=== PATIENT | male | born 1955 | race Caucasian/White ===

== ENCOUNTER 2019-05-18 06:35 | Day surgery (SDC) | payer OTHER ==
[~2019-05-18 06:35] MED LIST: Lactated Ringers 1,000 ML IV SCH; Lidocaine 1%/Sod Bicarbonate in NS 8.4% 1 ML Syringe IDERM PRN; Sodium Chloride 0.9% 10 ML Syringe FLUSH PRN
[2019-05-18] MEDS ORDERED: Propofol 200 MG/20 ML SDV ONE ×2 (06:41→08:18)
[2019-05-18] MEDS ORDERED: Midazolam 1 MG/ML 2 ML SDV ONE ×2 (06:41→08:16)
[2019-05-18] MEDS ORDERED: fentaNYL 100 MCG/2 ML SDV ONE (06:48)
[2019-05-18] MEDS ORDERED: Succinylcholine/Sod PF 100 MG/5 ML SYRINGE IV ONE ×2 (06:48→08:19)
--- NOTE | 2019-05-18 07:01 | PCM.PREANE ---
Preanesthetic Assessment - Anesthesia/Transfusion/Family Hx Anesthesia History: Prior Anesthesia Without Reaction - Review of Systems General: No Symptoms Pulmonary: No Symptoms Cardiovascular: No Symptoms Gastrointestinal: No Symptoms Neurological: No Symptoms Other: Reports: None - Physical Assessment NPO Status Date: 05/17/19 NPO Status Time: 20:30 Vital Signs: 162/104, hr:67, RR 18, SpO2 97% Height: 1.75 m Weight: 70.2 kg ASA Class: 2 Mental Status: Alert & Oriented x3 Airway Class: Mallampati = 3 (possibly difficult airway) Dentition: Reports: Broken Tooth/Teeth (multiple broken and chipped teeth, reports none loose) Thyro-Mental Finger Breadths: 3 Mouth Opening Finger Breadths: 3 ROM/Head Extension: Limited/Partial Lungs: Clear to Auscultation, Normal Respiratory Effort - Lab Values: Laboratory Last Values MRSA (PCR) Negative 05/16/19 12:01 - Allergies Allergies/Adverse Reactions: Allergies Allergy/AdvReac Type Severity Reaction Status Date / Time No Known Allergies Allergy Verified 05/18/19 08:07 - Acknowledgements Anesthesia Type Planned: General Anesthesia, Regional Block (interscalene block for postoperative pain) Pt an Appropriate Candidate for the Planned Anesthesia: Yes Alternatives and Risks of Anesthesia Discussed w Pt/Guardian: Yes Pt/Guardian Understands and Agrees with Anesthesia Plan: Yes PreAnesthesia Questionnaire HEENT History: Reports: Impaired Vision, Other (See Below) Other HEENT History: wears glasses Cardiovascular History: Reports: Hypertension Respiratory History: Reports: None Gastrointestinal History: Reports: GERD Genitourinary History: Reports: None Musculoskeletal History: Reports: None Neurological History: Reports: None Psychiatric History: Reports: Anxiety, Depression, Other (See Below) Other Psychiatric History: alcohol abuse, dystymic disorder Endocrine/Metabolic History: Reports: None Hematologic History: Reports: None Immunologic History: Reports: None Oncologic (Cancer) History: Reports: None Dermatologic History: Reports: None - Past Surgical History Head Surgeries/Procedures: Reports: None Cardiovascular Surgical History: Reports: None Respiratory Surgical History: Reports: None GI Surgical History: Reports: None Female Surgical History: Reports: None Male Surgical History: Reports: None Endocrine Surgical History: Reports: None Neurological Surgical History: Reports: None Musculoskeletal Surgical History: Reports: ORIF, Other (See Below) Other Musculoskeletal Surgeries/Procedures:: left wrist ORIF, right foot ORIF Oncologic Surgical History: Reports: None Dermatological Surgical History: Reports: None - SUBSTANCE USE Smoking Status *Q: Current Every Day Smoker Tobacco Use Within Last Twelve Months: Snuff/Dip Days Per Week of Alcohol Use: 7 Number of Drinks Per Day: 10 Total Drinks Per Week: 70 Recreational Drug Use History: No - HOME MEDS Home Medications: Home Meds Citalopram Hydrobromide [Celexa] 20 mg PO DAILY 05/17/19 [History] buPROPion HCL [Bupropion HCl Sr] 150 mg PO BID 05/17/19 [History] lisinopriL [Lisinopril] 10 mg PO DAILY 05/17/19 [History] - CURRENT (IN HOUSE) MEDS Current Meds: Current Medications Lactated Ringer's (Ringers, Lactated) 1,000 mls @ 125 mls/hr IV ASDIRECTED CARLOS EDUARDO Stop: 05/18/19 23:00 Lidocaine/Sodium Bicarbonate (Buffered Lidocaine 1% In Ns 8.4%) 0.25 ml IDERM ONETIME PRN PRN Reason: Prior to IV Start Stop: 05/18/19 23:00 Sodium Chloride (Saline Flush) 10 ml FLUSH ASDIRECTED PRN PRN Reason: Keep Vein Open Stop: 05/18/19 23:00 Discontinued Medications Fentanyl (Sublimaze) Confirm Administered Dose 100 mcg .ROUTE .STK-MED ONE Stop: 05/18/19 06:49 Midazolam HCl (Versed 1 Mg/Ml) Confirm Administered Dose 4 mg .ROUTE .STK-MED ONE Stop: 05/18/19 06:42 Propofol (Diprivan 20 Ml) Confirm Administered Dose 200 mg .ROUTE .STK-MED ONE Stop: 05/18/19 06:42
[2019-05-18] MEDS ORDERED: Ropivacaine 0.5% 5 MG/ML 30 ML SDV ONE (07:34)
[2019-05-18] MEDS ORDERED: ceFAZolin 1 GM Vial ONE (07:37)
[2019-05-18] MEDS ORDERED: Lidocaine 1% 2 ML ONE (08:41)
[2019-05-18] MEDS ORDERED: Lactated Ringers 1,000 ML ONE ×2 (08:44→10:09)
[2019-05-18] MEDS: Bupivacaine 0.25% 10 ML SDV ONE ×2 (09:07→10:35)
[2019-05-18] MEDS: Triamcinolone Acetonide 40 MG/ML 1 ML SDV ONE ×2 (09:08→10:35)
[2019-05-18] MEDS ORDERED: ePHEDrine Sulfate/0.9% NaCl/Pf 25 MG/5 ML SYRINGE IV ONE ×2 (09:16→10:11)
--- NOTE | 2019-05-18 09:31 | PCM.PRNOTE ---
- Free Text/Narrative Note: Postoperative regional pain control requested by surgeon. Pre-op Dx: Right humerus greater tuberosity fracture Surgical procedure: Right humerus ORIF Procedure: Rt Interscalene block with U/S guidance Requesting physician: Dr. Quan Lopez Risks and benefits discussed with the patient preoperatively including infection , bleeding, incomplete or failed block, possible nerve damage, local anesthetic toxicity. Chart reviewed, VS stable. Permit signed. Patient in preoperative room, stable , alert and awake. Time out performed at 07 :20. Oxygen 3L via NC. Right side of the neck was prepped with Chloraprep x 1 and allowed to dry. Midazolam IV 4 mg given incrementally. Under aseptic technique, the brachial plexus was identified under ultrasound prior to needle insertion. Local infiltration with 2mls of 1% Lidocaine. 2" Stimuplex needle # 22 G was inserted under US guidance. Neuromuscular response of biceps contraction and forearm twitching elicited at 0.6 mA. Under direct visualization of needle tip the injection of 25 mls 0.5% Ropivacaine with 1: 200k epinephrine with 5 mls of 1% Lidocaine PF, total of 30 mls in divided doses , maintaining negative aspiration was completed without problems. No local anesthetic toxicity was noted. Patient is awake, stable and tolerated the procedure well. Please see the attached U/S images Time: 07:20 - 07:29
[2019-05-18] MEDS ORDERED: Ondansetron 4 MG/2 ML SDV ONE (09:37)
[2019-05-18] MEDS ORDERED: fentaNYL 100 MCG/2 ML SDV IVPUSH PRN (10:38)
[2019-05-18] MEDS ORDERED: HYDROmorphone 0.5 MG/0.5 ML Syringe IVPUSH PRN (10:38)
--- NOTE | 2019-05-18 10:55 | CR ---
Right shoulder: 4 fluoroscopic spot views were obtained of the right shoulder utilizing C-arm device. Reduction or possibly resection of previous fracture fragment is noted. Please correlate. Fluoroscopy time given as 19.7 seconds. Impression: 1. Procedural study as noted above. Diagnostic code #2 Study was dictated in MDT
--- NOTE | 2019-05-18 11:10 | PCM.POSTAN ---
POST ANESTHESIA ASSESSMENT - MENTAL STATUS Mental Status: Alert, Oriented - VITAL SIGNS Vital Signs: Last Vital Signs Temp 98.1 F 05/18/19 10:52 Pulse 68 05/18/19 07:00 Resp 18 05/18/19 10:52 BP 118/77 05/18/19 10:52 Pulse Ox 99 05/18/19 10:52 - RESPIRATORY Respiratory Status: Respiratory Rate WNL, Airway Patent, O2 Saturation Stable, Supplemental Oxygen - CARDIOVASCULAR CV Status: Pulse Rate WNL, Blood Pressure Stable - GASTROINTESTINAL GI Status: No Symptoms - PAIN Pain Score: 1 - POST OP HYDRATION Hydration Status: Adequate & Stable
--- NOTE | 2019-05-18 12:28 | PCM48HPAN ---
Post Anesthesia Note - EVALUATION WITHIN 48HRS OF ANESTHETIC Vital Signs in Normal Range: Yes Patient Participated in Evaluation: Yes Respiratory Function Stable: Yes Airway Patent: Yes Cardiovascular Function Stable: Yes Hydration Status Stable: Yes Pain Control Satisfactory: Yes Nausea and Vomiting Control Satisfactory: Yes Mental Status Recovered: Yes Vital Signs: Last Vital Signs Temp 97.7 F 05/18/19 11:45 Pulse 82 05/18/19 11:45 Resp 16 05/18/19 11:45 BP 134/89 05/18/19 11:45 Pulse Ox 95 05/18/19 11:45 - COMMENTS/OBSERVATIONS Free Text/Narrative:: Patient is ready to be discharged home. Patient received explanation about being proactive with oral pain control after the dissipation of the regional block.
[2019-05-18 13:55] VITALS: BP 146/92; PULSE 67
--- NOTE | 2019-05-23 11:00 | PCM.OPNOTE ---
- General Post-Op/Procedure Note Date of Surgery/Procedure: 05/18/19 Operative Procedure(s): open reduction with internal fixation of right greater tuberosity fracture with left carpal tunnel injection Pre Op Diagnosis: right greater tuberosity humerus fracture with left carpal tunnel syndrome Post-Op Diagnosis: Same Anesthesia Technique: General ET Tube, Regional Block Primary Surgeon: Quan Peoples Anesthesia Provider: Cesar Riley Cripple Worker: Elida Payne EBL in mLs: 300 Condition: Good
--- NOTE | 2019-05-23 11:38 | OR ---
DATE OF OPERATION: 05/18/2019 SURGEON: Quan Peoples MD OPERATION PERFORMED: Open reduction internal fixation of right greater tuberosity fracture with left carpal tunnel steroid injection. PREOPERATIVE DIAGNOSIS: Right greater tuberosity humerus fracture with left carpal tunnel syndrome. POSTOPERATIVE DIAGNOSIS: Right greater tuberosity humerus fracture with left carpal tunnel syndrome. ANESTHESIA: General endotracheal intubation with regional interscalene block. ANESTHESIA PROVIDER: Lucia Spangler. ROAD CONDUCTOR: Elida Payne PA-C ESTIMATED BLOOD LOSS: 300 mL. CONDITION: Stable. DESCRIPTION OF PROCEDURE: The patient was identified in the preop holding area. Proper site was marked, identified by the surgeon. The patient was taken back to the operative theater where after adequate anesthesia, the patient was placed supine on radiolucent table. Right upper extremity was then sterilely prepped and draped in the usual sterile fashion. OR time-out was performed. The patient received 2 g IV Ancef. The patient was placed in the reverse Trendelenburg position and standard deltopectoral incision was made. This was taken down to cephalic vein. The cephalic vein was identified and retracted laterally and the clavipectoral fascia was incised. I was able to find the area of fracture of the greater tuberosity with complete pullback of the greater tuberosity fracture way posteriorly. This was chronic and over 5 to 6 weeks out, making the difficulty significantly increased as there was significant scarring and difficulty getting that fragment from posteriorly up laterally and anteriorly where the fracture bed was. I curetted and rongeured the fracture bed and was able to finally with an Allis clamp grab the piece. It was significantly scarred in. I had to work with an elevator to elevate it off posteriorly where it had scarred in. At this point, C-arm fluoroscopy was utilized to show that I indeed have the fragment, and I then placed a #5 FiberWire through the fragment. Secondary to the small bony fragment, I decided plate fixation would not be adequate, so we decided to use two 4.75 mm Arthrex SwiveLock anchors. These were placed just distal to the fracture bed and 1 anteriorly and 1 posteriorly to it. I then placed 4 limbs of #2 FiberWire through the bony fragment and proximal to the bony fragment through the rotator cuff and was able to tie these in crosswise fashion over the greater tuberosity fracture and it had adequate baptism of the rotator cuff to the greater tuberosity fracture fragment. It did take significant force as the patient's greater tuberosity fragment as well as rotator cuff had been for 6 weeks retracted and scarred in posteriorly. C-arm fluoroscopy was utilized showing that it was indeed back to the fracture bed fragment. Once this was completed and found to be adequate on C-arm fluoroscopy, adequate saline was irrigated through the wound. 2-0 Vicryl was used subcutaneously and Prineo was used for the skin. The patient was placed in a sterile soft dressing and a pillow sling. After this was completed under sterile technique, 1 mL of 40 mg Kenalog and 2 mL of 0.25% Marcaine were injected to the left carpal tunnel. The patient tolerated all the procedures well and sent to the PACU in stable condition. DEIRDRE /[id number]
== END 2019-05-18 13:25 | disposition home or self-care (01) ==
LOC: JD.SDS 06:35
PROVIDERS: ATTEND Orthopaedic Surgery
DX: S42.251A Displaced fracture of greater tuberosity of right humerus, initial encounter for closed fracture (principal); G56.02 Carpal tunnel syndrome, left upper limb; I10 Essential (primary) hypertension; K21.9 Gastro-esophageal reflux disease without esophagitis; F34.1 Dysthymic disorder; F10.20 Alcohol dependence, uncomplicated; F17.220 Nicotine dependence, chewing tobacco, uncomplicated; Z79.899 Other long term (current) drug therapy; W19.XXXA Unspecified fall, initial encounter; Y92.513 Shop (commercial) as the place of occurrence of the external cause
CPT/HCPCS: 20526; 23630; 36415; 76000; 80053; 80307; 85025; 85610; 87641; C1713; J0171; J0330; J0690; J2001; J2250; J2405; J2704; J2795; J3010; J3301; J3490; J7120; 01630; 64415

== ENCOUNTER 2020-01-18 16:18 | Emergency (ER) | payer OTHER ==
[2020-01-18] MEDS ORDERED: Sodium Chloride 0.9% 10 ML Syringe FLUSH PRN (16:49)
[2020-01-18] MEDS ORDERED: Sodium Chloride 0.9% 1,000 ML IV ONE (16:50)
[2020-01-18 16:52] VITALS: PULSE 89
--- NOTE | 2020-01-18 17:14 | EDM.PDOC ---
ED HPI GENERAL MEDICAL PROBLEM - General Chief Complaint: Cardiovascular Problem Stated Complaint: HIGH POTASSIUM Time Seen by Provider: 01/18/20 16:26 Source of Information: Reports: Patient History Limitations: Reports: No Limitations - History of Present Illness INITIAL COMMENTS - FREE TEXT/NARRATIVE: The patient presents with high potassium. The patient had blood work done on 11/22/19 and his potassium was elevated at 5.4. He was supposed to drink more water but he admits that has been a challenge and he has not been doing good with that. He had labs done again today and his K was 5.8 and creatinine was 1.3 and AST was up slightly at 43. The rest of his labs look good. He says he feels good. He has no fever, chills, cough, congestion, runny nose, chest pain, shortness of breath, abdominal pain, nausea or vomiting. He does have a history of hypertension and he is on lisinopril for that. He is also on medications for depression and anxiety. Onset: Gradual Duration: Week(s): Severity: Moderate Improves with: Reports: None Worsens with: Reports: None Associated Symptoms: Reports: No Other Symptoms - Related Data Allergies Allergy/AdvReac Type Severity Reaction Status Date / Time No Known Allergies Allergy Verified 01/18/20 16:30 Home Meds: Home Meds Citalopram Hydrobromide [Celexa] 20 mg PO DAILY 05/17/19 [History] buPROPion HCL [Bupropion HCl Sr] 150 mg PO BID 05/17/19 [History] lisinopriL [Lisinopril] 10 mg PO DAILY 05/17/19 [History] Past Medical History HEENT History: Reports: Impaired Vision, Other (See Below) Other HEENT History: wears glasses Cardiovascular History: Reports: Hypertension Respiratory History: Reports: None Gastrointestinal History: Reports: GERD Genitourinary History: Reports: None Musculoskeletal History: Reports: None Neurological History: Reports: None Psychiatric History: Reports: Anxiety, Depression, Other (See Below) Other Psychiatric History: alcohol abuse, dystymic disorder Endocrine/Metabolic History: Reports: None Hematologic History: Reports: None Immunologic History: Reports: None Oncologic (Cancer) History: Reports: None Dermatologic History: Reports: None - Infectious Disease History Infectious Disease History: Reports: Chicken Pox, Measles - Past Surgical History Cardiovascular Surgical History: Reports: None GI Surgical History: Reports: None Male Surgical History: Reports: None Musculoskeletal Surgical History: Reports: ORIF, Other (See Below) Other Musculoskeletal Surgeries/Procedures:: left wrist ORIF, right foot ORIF Social & Family History - Family History Family Medical History: No Pertinent Family History - Tobacco Use Tobacco Use Comment: 02/17 can - Caffeine Use Caffeine Use: Reports: None - Alcohol Use Days Per Week of Alcohol Use: 7 Number of Drinks Per Day: 10 Total Drinks Per Week: 70 - Recreational Drug Use Recreational Drug Use: No ED ROS GENERAL - Review of Systems Review Of Systems: See Below Constitutional: Reports: No Symptoms HEENT: Reports: No Symptoms Respiratory: Reports: No Symptoms Cardiovascular: Reports: No Symptoms Endocrine: Reports: No Symptoms GI/Abdominal: Reports: No Symptoms : Reports: No Symptoms Musculoskeletal: Reports: No Symptoms Skin: Reports: No Symptoms ED EXAM, GENERAL - Physical Exam Exam: See Below Exam Limited By: No Limitations General Appearance: Alert, No Apparent Distress Ears: Normal External Exam Nose: Normal Inspection Head: Atraumatic, Normocephalic Neck: Normal Inspection Respiratory/Chest: No Respiratory Distress, Lungs Clear, Normal Breath Sounds Cardiovascular: Regular Rate, Rhythm, No Edema, No Murmur GI/Abdominal: Soft, Non-Tender, No Organomegaly, No Mass Back Exam: Normal Inspection Extremities: Normal Inspection Course - Vital Signs Last Recorded V/S: Last Vital Signs Temp 96.8 F L 01/18/20 16:28 Pulse 89 01/18/20 16:50 Resp 20 01/18/20 16:28 BP 133/88 01/18/20 16:50 Pulse Ox 97 01/18/20 16:28 - Orders/Labs/Meds Orders: Active Orders 24 hr Category Date Time Status Cardiac Monitoring [RC] . DIRECTED Care 01/18/20 16:49 Active Peripheral IV Care [RC] . DIRECTED Care 01/18/20 16:50 Active Sodium Chloride 0.9% [Saline Flush] Med 01/18/20 16:49 Active 10 ml FLUSH ASDIRECTED PRN Peripheral IV Insertion Adult [OM.PC] Stat Oth 01/18/20 16:49 Ordered Medication Orders Sodium Chloride (Saline Flush) 10 ml FLUSH ASDIRECTED PRN PRN Reason: Keep Vein Open Last Admin: 01/18/20 17:05 Dose: 10 ml Documented by: HOWAELI Labs: Laboratory Tests 01/18/20 01/18/20 Range/Units 17:03 17:49 WBC 6.74 (4.23-9.07) K/mm3 RBC 4.82 (4.63-6.08) M/mm3 Hgb 15.6 (13.7-17.5) gm/dl Hct 47.3 (40.1-51.0) % MCV 98.1 H (79.0-92.2) fl MCH 32.4 H (25.7-32.2) pg MCHC 33.0 (32.2-35.5) g/dl RDW Std Deviation 44.7 H (35.1-43.9) fL Plt Count 237 (163-337) K/mm3 MPV 9.7 (9.4-12.3) fl Neut % (Auto) 66.2 (34.0-67.9) % Lymph % (Auto) 15.0 L (21.8-53.1) % Morrow % (Auto) 13.6 H (5.3-12.2) % Eos % (Auto) 4.3 (0.8-7.0) Baso % (Auto) 0.9 (0.1-1.2) % Neut # (Auto) 4.46 (1.78-5.38) K/mm3 Lymph # (Auto) 1.01 L (1.32-3.57) K/mm3 Morrow # (Auto) 0.92 H (0.30-0.82) K/mm3 Eos # (Auto) 0.29 (0.04-0.54) K/mm3 Baso # (Auto) 0.06 (0.01-0.08) K/mm3 Sodium 138 (136-145) mEq/L Potassium 4.5 (3.5-5.1) mEq/L Chloride 103 (98-107) mEq/L Carbon Dioxide 23 (21-32) mEq/L Anion Gap 16.5 H (5-15) BUN 12 (7-18) mg/dL Creatinine 1.2 (0.7-1.3) mg/dL Est Cr Clr Drug Dosing 60.55 mL/min Estimated GFR (MDRD) > 60 (>60) mL/min BUN/Creatinine Ratio 10.0 L (14-18) Glucose 86 (80-115) mg/dL Calcium 8.1 L (8.5-10.1) mg/dL Magnesium 2.0 (1.8-2.4) mg/dl Total Bilirubin 0.3 (0.2-1.0) mg/dL AST 32 (15-37) U/L ALT 31 (16-63) U/L Alkaline Phosphatase 110 (46-116) U/L Troponin I < 0.017 (0.00-0.056) ng/mL Total Protein 6.5 (6.4-8.2) g/dl Albumin 3.1 L (3.4-5.0) g/dl Globulin 3.4 gm/dL Albumin/Globulin Ratio 0.9 L (1-2) Meds: Medications Generic Name Dose Route Start Last Admin Trade Name Freq PRN Reason Stop Dose Admin Sodium Chloride 10 ml 01/18/20 16:49 01/18/20 17:05 Saline Flush FLUSH 10 ml ASDIRECTED PRN Administration Keep Vein Open Discontinued Medications Generic Name Dose Route Start Last Admin Trade Name Freq PRN Reason Stop Dose Admin Sodium Chloride 1,000 mls @ 1,000 mls/hr 01/18/20 16:50 01/18/20 17:05 Normal Saline IV 01/18/20 17:49 1,000 mls/hr ONETIME ONE Administration - Re-Assessments/Exams Free Text/Narrative Re-Assessment/Exam: 01/18/20 17:14 I ordered an IV NS 1L bolus, and labs. 01/18/20 18:44 His CBC and CMP look good. His K was normal at 4.5. His first sample was hemolyzed. They rico him again and it was normal. His troponin was negative. Departure - Departure Time of Disposition: 18:45 Disposition: Home, Self-Care 01 Condition: Good Clinical Impression: Abnormal laboratory test Referrals: Kemi Jacobs NP [Primary Care Provider] - Forms: ED Department Discharge Additional Instructions: Your labs were checked and your potassium was normal. Please return if you are worse. Sepsis Event Note (ED) - Evaluation Sepsis Screening Result: No Definite Risk - Focused Exam Vital Signs: Vital Signs Temp Pulse Resp BP Pulse Ox 01/18/20 16:50 89 133/88 01/18/20 16:28 96.8 F L 81 20 169/104 H 97 - My Orders Last 24 Hours: My Active Orders 01/18/20 16:49 Cardiac Monitoring [RC] . DIRECTED Sodium Chloride 0.9% [Saline Flush] 10 ml FLUSH ASDIRECTED PRN Peripheral IV Insertion Adult [OM.PC] Stat 01/18/20 16:50 Peripheral IV Care [RC] . DIRECTED - Assessment/Plan Last 24 Hours: My Active Orders 01/18/20 16:49 Cardiac Monitoring [RC] . DIRECTED Sodium Chloride 0.9% [Saline Flush] 10 ml FLUSH ASDIRECTED PRN Peripheral IV Insertion Adult [OM.PC] Stat 01/18/20 16:50 Peripheral IV Care [RC] . DIRECTED
[2020-01-18 19:06] VITALS: BP 150/98
== END 2020-01-18 19:07 | disposition home or self-care (01) ==
LOC: JD.ED 16:18
DX: R79.89 Other specified abnormal findings of blood chemistry (principal); I10 Essential (primary) hypertension; F41.9 Anxiety disorder, unspecified; F32.9 Major depressive disorder, single episode, unspecified; F17.290 Nicotine dependence, other tobacco product, uncomplicated; Z79.899 Other long term (current) drug therapy
CPT/HCPCS: 36415; 80053; 83735; 84484; 85025; 99284; J7030; 99283